=== PATIENT | female | born 1965 | race Caucasian/White ===

== ENCOUNTER 2022-03-05 09:38 | Outpatient (CLI) | payer OTHER ==
--- NOTE | 2022-03-05 16:24 | Nuclear Medicine Report ---
NUCLEAR MEDICINE BONE SCAN, WHOLE BODY INDICATION / CLINICAL INFORMATION: T17.228A. History of bone lesions without definite history of makenzie gnancy; recent fall and left knee injury TECHNIQUE: 26.2 mCi of Tc-99m MDP were injected IV. Images were obtained of the whole body. COMPARISON: No relevant prior imaging study available. FINDINGS: BONES: Focal moderate area of activity is seen in a proximal right rib just lateral to the spine at r oughly the fifth rib level. This is in the area of the costovertebral junction. No other rib lesions are seen. Bilaterally there is mild focal increased activity in the mid tibial shafts anteriorly, mil dly more extensive on the left. No other focal lesions are seen. JOINTS: Prominent arthritic changes are seen in both knees with moderate arthritic type changes seen in the tarsals bilaterally, worse on the right and in both glenohumeral and acromioclavicular joints. SOFT TISSUES: No significant abnormality. KIDNEYS: No significant abnormality. ADDITIONAL FINDINGS: None. IMPRESSION: 1. Single moderate increased focus of activity in the area of the right fifth costovertebral junction . Etiology is unknown. Rib radiographs may be useful. 2. Bilateral anterior mid tibial mild activity. This can be seen with berger splints though given the h istory of recent fall and lower extremity injury possibly this could relate to bone contusion. Clinic al correlation is suggested and radiographs may be helpful. 3. Arthritic changes as above which are particularly prominent in both knees. Signer Name: Po Benitez MD Signed: 03/05/2022 4:19 PM Workstation Name: [email or web address]
== END 2022-03-05 09:39 | disposition home or self-care (01) ==
LOC: NM 09:38
PROVIDERS: ATTEND Internal Medicine
DX: M17.0 Bilateral primary osteoarthritis of knee (principal)
CPT/HCPCS: 78306; A9503